=== PATIENT | female | born 1995 | race Caucasian/White ===

== ENCOUNTER 2017-07-11 15:23 | Emergency (ER) | payer BC ==
[2017-07-11 15:33] VITALS: BMI 27.4
--- NOTE | 2017-07-11 17:55 | ED.ABDFE ---
HPI - Time seen Time seen: 17:50 - PCP Primary Care Physician: JESSE BEACH - Complaint Chief Complaint Doctors Comments: Patient presented to the ED with complaint of sharp abdominal pain. Denies vomiting or fever. Chief Complaint:: PT C/O BEING AT SCHOOL AND I STARTED HAVING SHARP PAINS TO MY UPPER ABD... - Source History Provided: Patient - Mode of arrival Mode of Arrival: Ambulatory - Timing Onset of Chief Complaint: 07/11/17 PMH - PMH Past Medical History: Yes Past Medical History: Diabetes Past Surgical History: Yes Surgical History: Tonsillectomy - Family History History of Family Medical Conditions: No - Social History Does patient currently use any type of tobacco product: No Have you used tobacco products in the last 12 months: No Type of Tobacco Use: None Does any household member use tobacco: No Alcohol Use: None Do you use any recreational Drugs:: No Lives With: Family Lives Where: Home - infectious screening In the last 2 months have you had wt loss of >10#?: NO Have you had fever, night sweats or hemotysis?: No Have you traveled outside the country in the last 6 months?: No Isolation: Standard ROS - Review of Systems Eyes: No Symptoms Reported ENTM: No Symptoms Reported Respiratoy: No Symptoms Reported Cardiovascular: No Symptoms Reported Gastrointestinal/Abdominal: Abdominal Pain Genitourinary: No Symptoms Reported Neurological: No Symptoms Reported Musculoskeletal: No Symptoms Reported Integumentary: No Symptoms Reported Hematologic/Lymphatic: No Symptoms Reported Endocrine: No Symptoms Reported Psychiatric: No Symptoms Reported All Other Systems: Reviewed and Negative PE - Vital Signs Vitals: Temperature 97.9 F Pulse Rate 100 Respiratory Rate 22 Blood Pressure 168/98 O2 Sat by Pulse Oximetry 97 - General Limitations: No Limitations General Appearance: Alert, In No Apparent Distress - Head Head Exam: Normal Inspection, Atraumatic - Eyes Eye exam: Normal Appearance, PERRL, EOMI - ENT ENT Exam: Normal Exam - Neck Neck Exam: Normal Inspection, Full ROM - Chest Chest Inspection: Normal Inspection, Symmetric Chest Wall Rise - Respiratory Respiratory Exam: Normal Lung Sounds Bilat Respiratory Exam: Bilateral Clear to Auscultation - Cardiovascular Cardiovascular Exam: Regular Rate, Normal Rhythm - Abdominal Exam Abdominal Exam: Normal Inspection, Normal Bowel Sounds Abdominal Tenderness: negative: RUQ, RLQ, LUQ, LLQ, Epigastrium, Suprapubic, Diffuse, Mild, Moderate, Severe, Other - Rectal Rectal Exam: Deferred - Back Back Exam: Normal Inspection, Full ROM - Extremeties Extremities Exam: Normal Inspection, Full ROM - External Exam: Female: Deferred : Speculum Exam (Female): Deferred : Bimanual Exam (female): Deferred - Neurologic Neurological Exam: Alert, Oriented X3, CN II-XII Intact - Psychiatric Psychiatric Exam: Normal Affect - Skin Skin Exam: Warm, Dry, Intact ROR - Labs Reviewed Result Diagrams: 07/11/17 18:20 07/11/17 18:20 Laboratory: WBC 9.4 X10^3/uL (3.6-10.0) 07/11/17 18:20 RBC 5.13 X10^6/uL (3.5-5.4) 07/11/17 18:20 Hgb 14.9 g/dL (12.0-16.0) 07/11/17 18:20 Hct 42.5 % (36.0-47.0) 07/11/17 18:20 MCV 82.9 fL (80.0-100.0) 07/11/17 18:20 MCH 29.0 pg (27.0-34.0) 07/11/17 18:20 MCHC 35.0 g/dL (33.0-35.0) 07/11/17 18:20 RDW 12.8 % (11.6-16.5) 07/11/17 18:20 Plt Count 259 X10^3/uL (150.0-450.0) 07/11/17 18:20 MPV 10.2 fL (7.4-11.0) 07/11/17 18:20 Neut % 77.3 % (42.0-75.0) H 07/11/17 18:20 Lymph % 14.1 % (21.0-51.0) L 07/11/17 18:20 [place] % 7.1 % (0.0-13.0) 07/11/17 18:20 Eos % 1.2 % (0.9-2.9) 07/11/17 18:20 Baso % 0.3 % (0.2-1.0) 07/11/17 18:20 Neut # 7.2 x10^3/uL (2.2-4.8) H 07/11/17 18:20 Lymph # 1.3 X10^3/uL (1.3-2.9) 07/11/17 18:20 [place] # 0.7 x10^3/uL (0.3-0.8) 07/11/17 18:20 Eos # 0.1 x10^3/uL (0.0-0.2) 07/11/17 18:20 Baso # 0.0 X10^3/uL (0.0-0.1) 07/11/17 18:20 Absolute Nucleated RBC 0.0 /100WBC 07/11/17 18:20 Sodium 138 mmol/L (136-145) 07/11/17 18:20 Corrected Sodium 141 mmol/L (136-145) 07/11/17 18:20 Potassium 3.7 mmol/L (3.5-5.1) 07/11/17 18:20 Chloride 101 mmol/L (98-107) 07/11/17 18:20 Carbon Dioxide 27.3 mmol/L (21-32) 07/11/17 18:20 BUN 8 mg/dL (7-18) 07/11/17 18:20 Creatinine 0.73 mg/dL (0.55-1.02) 07/11/17 18:20 Est GFR (MDRD) Af Amer > 60 (>60) 07/11/17 18:20 Est GFR (MDRD) Non-Af > 60 (>60) 07/11/17 18:20 Glucose 211 mg/dL (65-99) H 07/11/17 18:20 Calcium 9.2 mg/dL (8.5-10.1) 07/11/17 18:20 Corrected Calcium TNP 07/11/17 18:20 Total Bilirubin 0.50 mg/dL (0.2-1.0) 07/11/17 18:20 AST 307 Units/L (15-37) H 07/11/17 18:20 ALT 167 Units/L (12-78) H 07/11/17 18:20 Alkaline Phosphatase 139 Units/L (45-150) 07/11/17 18:20 Total Protein 8.2 g/dL (6.4-8.2) 07/11/17 18:20 Albumin 4.6 g/dL (3.4-5.0) 07/11/17 18:20 Globulin 3.6 g/dL (2.5-4.5) 07/11/17 18:20 Albumin/Globulin Ratio 1.3 Ratio (1.1-2.1) 07/11/17 18:20 Amylase 20 Units/L (25-115) L 07/11/17 18:20 Lipase 108 Units/L (73-393) 07/11/17 18:20 HCG, Qual Negative <10 mIU/mL 07/11/17 18:20 Specimen Type Clean catch urine 07/11/17 18:02 Urine Color Yellow (YELLOW) 07/11/17 18:02 Urine Appearance Clear (CLEAR) 07/11/17 18: Urine pH 8.0 (5.0 - 8.0) 07/11/17 18:02 Ur Specific [place] 1.010 (1.000-1.030) 07/11/17 18:02 Urine Protein Negative (NEGATIVE) 07/11/17 18:02 Urine Glucose (UA) 4+ (NEGATIVE) 07/11/17 18:02 Urine Ketones Negative (NEGATIVE) 07/11/17 18:02 Urine Occult Blood Negative (NEGATIVE) 07/11/17 18:02 Urine Nitrite Negative (NEGATIVE) 07/11/17 18:02 Urine Bilirubin Negative (NEGATIVE) 07/11/17 18:02 Urine Urobilinogen Normal (NORMAL) 07/11/17 18:02 Ur Leukocyte Esterase Negative (NEGATIVE) 07/11/17 18:02 Urine RBC 0 /HPF (NEGATIVE) 07/11/17 18:02 Urine WBC 0 /HPF (NEGATIVE) 07/11/17 18:02 Ur Squamous Epith Cells Negative /HPF (NEGATIVE) 07/11/17 18:02 Urine Bacteria Negative /HPF (NEGATIVE) 07/11/17 18:02 Ur Culture Indicated? No/not indicated 07/11/17 18:02 H. pylori IgG Antibody Negative (NEGATIVE) 07/11/17 18:20 - XRAY XRAY Interpreted by: Radiologist (Abdomen: There is moderate diffuse colonic stool burden. The bowel gas pattern is nonobstructed. No suspicious calcifications or free air identified. The heart size is normal and the lungs are clear.) - Diagnosis Discharge Problem: Constipation Qualifiers: Constipation type: slow transit constipation Qualified Code(s): K59.01 - Slow transit constipation - Discharge Plan Condition: Stable - Follow ups/Referrals Follow ups/Referrals: Hernandez Vázquez [Primary Care Provider] - 3 days - Instructions
[2017-07-11] MEDS ORDERED: NS 1000 ML 1,000 ML IV ONE (17:57)
[2017-07-11] MEDS ORDERED: NS 1000 ML 1,000 ML ONE (18:04)
[2017-07-11 18:37] LABS: BILIRUBIN,URINE NEGATIVE (NEGATIVE); BLOOD/HEMOGLOBIN,URINE NEGATIVE (NEGATIVE); GLUCOSE, URINE 4+ (NEGATIVE); KETONES,URINE NEGATIVE (NEGATIVE); LEUKOCYTE ESTERASE ,URINE NEGATIVE (NEGATIVE); NITRITES,URINE NEGATIVE (NEGATIVE); PROTEIN,URINE NEGATIVE (NEGATIVE); UROBILINOGEN,URINE NORMAL (NORMAL)
[2017-07-11 18:40] LABS: BASOPHILS % (AUTO) 0.3 % (0.2-1.0); EOSINOPHILS # (AUTO) 0.1 x10^3/uL (0.0-0.2); EOSINOPHILS % (AUTO) 1.2 % (0.9-2.9); HEMATOCRIT 42.5 % (36.0-47.0); HEMOGLOBIN 14.9 g/dL (12.0-16.0); LYMPHOCYTES # (AUTO) 1.3 X10^3/uL (1.3-2.9); LYMPHOCYTES % (AUTO) 14.1 % (21.0-51.0); MEAN CORPUSCULAR VOLUME 82.9 fL (80.0-100.0); MEAN PLATELET VOLUME 10.2 fL (7.4-11.0); MONOCYTES # (AUTO) 0.7 x10^3/uL (0.3-0.8); MONOCYTES % (AUTO) 7.1 % (0.0-13.0); NEUTROPHILS # (AUTO) 7.2 x10^3/uL (2.2-4.8); NEUTROPHILS % (AUTO) 77.3 % (42.0-75.0); PLATELET COUNT 259 X10^3/uL (150.0-450.0); RED BLOOD COUNT 5.13 X10^6/uL (3.5-5.4); RED CELL DISTRIBUTION WIDTH 12.8 % (11.6-16.5); WHITE BLOOD COUNT 9.4 X10^3/uL (3.6-10.0)
--- NOTE | 2017-07-11 18:40 | RAD ---
Acute abdominal series with single view chest Indication: Upper abdominal pain Comparison: None Findings: There is moderate diffuse colonic stool burden. The bowel gas pattern is nonobstructed. No suspicious calcifications or free air identified. The heart size is normal and the lungs are clear. Impression: Moderate colonic stool, suggesting constipation. No evidence for acute abdominal or chest process. Reported By:
[2017-07-11 18:47] LABS: SERUM PREGNANCY TEST, QUAL NEGATIVE <10 mIU/mL
[2017-07-11 18:47] LABS: APPEARANCE,URINE CLEAR (CLEAR); BACTERIA,URINE NEGATIVE /HPF (NEGATIVE); COLOR,URINE YELLOW (YELLOW); RBC,URINE 0 /HPF (NEGATIVE); SQUAMOUS EPITHELIAL CELL,UR NEGATIVE /HPF (NEGATIVE)
[2017-07-11 18:57] LABS: ALANINE AMINOTRANSFERASE 167 Units/L (12-78); ALBUMIN 4.6 g/dL (3.4-5.0); ALKALINE PHOSPHATASE 139 Units/L (45-150); AMYLASE 20 Units/L (25-115); ASPARTATE AMINO TRANSFERASE 307 Units/L (15-37); BLOOD UREA NITROGEN 8 mg/dL (7-18); CALCIUM 9.2 mg/dL (8.5-10.1); CARBON DIOXIDE 27.3 mmol/L (21-32); CHLORIDE 101 mmol/L (98-107); COR NA(FOR HYPERGLY) 141 mmol/L (136-145); CREATININE 0.73 mg/dL (0.55-1.02); LIPASE 108 Units/L (73-393); SODIUM 138 mmol/L (136-145); TOTAL PROTEIN 8.2 g/dL (6.4-8.2); eGFR BLACK RACES > 60 (>60); eGFR NON BLACK RACES > 60 (>60)
[2017-07-11] MEDS ORDERED: CITROMA PO ONE (19:52)
[2017-07-11] MEDS ORDERED: CITROMA ONE (19:54)
[2017-07-11 20:06] VITALS: BP 127/82
== END 2017-07-11 20:06 | disposition home or self-care (01) ==
LOC: ER 15:38
DX: K59.01 Slow transit constipation (principal)
CPT/HCPCS: 36415; 74022; 80053; 81001; 82150; 83690; 84703; 85025; 86677; 96365; 96367; 99282; 99283; A4222